=== PATIENT | female | born 1950 | race Caucasian/White ===

== ENCOUNTER → 2018-04-26 | Outpatient (CLI) | payer MEDICARE, OTHER | LOC: GMAL 13:02 | PROVIDERS: ATTEND Family Medicine | DX: D51.8 Other vitamin B12 deficiency anemias (principal); R53.83 Other fatigue; E55.9 Vitamin D deficiency, unspecified ==

== ENCOUNTER → 2018-05-03 | Outpatient (CLI) | payer MEDICARE, OTHER ==
--- NOTE | 2018-05-03 15:11 | US ---
EXAM DESCRIPTION: Renal CLINICAL HISTORY: 67 years Female, ACUTE RENAL INSUFFICIENCY COMPARISON: None. TECHNIQUE: Retroperitoneal sonogram was performed to evaluate the kidneys and bladder. FINDINGS: Right kidney Right renal length is 10.3 cm. Renal cortical thickness and echogenicity are normal. No right renal mass, cyst or shadowing stone. No hydronephrosis. Left kidney Left renal length is 10.9 cm. Renal cortical thickness and echogenicity are normal. No left renal mass, cyst or shadowing stone. No hydronephrosis. Urinary bladder The bladder is not seen, evidently empty of urine at the time of the exam. IMPRESSION: Normal sonographic appearance of the kidneys. Unremarkable appearance of the urinary bladder. Electronically signed by: Dimitris Hager MD 05/03/2018 3:10 PM [facility]
== END ==
LOC: US 12:14
PROVIDERS: ATTEND Family Medicine
DX: N28.89 Other specified disorders of kidney and ureter (principal)

== ENCOUNTER → 2018-06-09 | Outpatient (CLI) | payer MEDICARE, OTHER | LOC: GMAL 14:42 | PROVIDERS: ATTEND Family Medicine | DX: I50.9 Heart failure, unspecified (principal) ==

== ENCOUNTER → 2018-07-02 | Outpatient (CLI) | payer MEDICARE, OTHER ==
--- NOTE | 2018-07-02 13:31 | CT ---
EXAM DESCRIPTION: Chest w/wo Contrast : Computed Tomography. CLINICAL HISTORY: 67 years Female PULMONARY FIBROSIS COMPARISON: Chest x-ray 2 views 06/09/2017. TECHNIQUE: Spiral-axial scans at 5 x 5 mm intervals through the lungs and thorax without IV contrast. 2.5 x 5 mm lung algorithm axial reconstructions. Coronal and sagittal 2.0 Mm reconstructions. No adverse reactions. Total Exam DLP: 1910.28 mGy-cm. This exam was performed according to our departmental dose-optimization program which includes automated exposure control, adjustment of the mA and/or kV according to patient size and/or use of iterative reconstruction technique; to reduce radiation dose to as low as reasonably achievable (ALARA). Nodule measurements under 10 mm are given as mean value of 3 axes diameters. FINDINGS: Lungs and large airways: Bilateral blebs are noted abutting the pleura medial and in the periphery as well as abutting the fissures. Large bulla in the central left lower lobe. Peripheral groundglass density in the left upper lobe. Prominent septal thickening in both upper lobes. Groundglass density peripherally and tree-in-bud markings in the peripheral right middle lobe. Also peripheral fibrotic densities in the upper lobes peripherally, inferior right middle lobe, and bilateral bases of the lower lobes. No abnormal nodules and no masses bilaterally. Pleural spaces: No pneumothorax or effusion bilaterally. Mediastinum and Janny: No soft tissue masses or enlarged lymph nodes. Great vessels and Heart: Coronary artery atherosclerotic calcifications and/or stents. Atherosclerotic calcifications in the arch of the aorta and descending aorta. Soft tissues of neck base, axillae, and chest wall: Unremarkable. Upper abdomen: No fluid or free air in the included peritoneal space. Low-density of the liver. Gallbladder partially visualized. Normal enhancement and size of the included spleen and adrenal glands and pancreas. Atherosclerotic changes in the aorta and branch vessels in the celiac axis. Osseous structures: Spondylosis at several levels of the thoracic spine. Minimal arthrosis in the sternoclavicular joints. IMPRESSION: 1. Mild paraseptal type emphysema, but lung volumes are slightly reduced with peripheral groundglass densities, tree-in-bud markings, and fibrotic changes. This is consistent with clinical history, with additional upper lobe currently emphysematous changes. 2. No soft tissue masses or abnormal lymph nodes. Possible fatty infiltration of the partially visualized liver. Electronically signed by: Jayden Burton MD 07/02/2018 1:29 PM [employer]
== END ==
LOC: CT 08:30
PROVIDERS: ATTEND Family Medicine
DX: J84.112 Idiopathic pulmonary fibrosis (principal)

== ENCOUNTER → 2018-09-02 | Outpatient (CLI) | payer MEDICARE, OTHER ==
--- NOTE | 2018-09-03 14:12 | MRI ---
EXAM DESCRIPTION: Lumbar Spine w/o Contrast : Magnetic Resonance Imaging. CLINICAL HISTORY: SPINAL STENOSIS COMPARISON: None. TECHNIQUE: Multiplanar, multiple standard sequences, non contrast MRI, lumbar spine. FINDINGS: L5-S1: Disc space is imaged on T2 axial sequence 501, image 3. Disc desiccation and minimal disc space loss. Left posterior and midline bulge abutting the thecal sac and the descending left S1 nerve above the lateral recess. Bulge also into the left foramen abutting the exiting left L5 nerve. Large left lateral osteophytes projecting from the endplates also abutting the left L5 nerve in the soft tissues. AP canal diameter 8 mm. Posterior elements unremarkable. L4-L5: Trace anterolisthesis. Disc desiccation with disc space maintained. Posterior midline and right paracentral hyperintense T2-weighted annular fissure abutting the thecal sac and the descending right L5 nerve. Partial effacement of the right subarticular recess. Facet arthrosis and hypertrophy of the facet and flavum ligament bilaterally abutting the posterior thecal sac. AP canal diameter 8 mm. Moderate right foraminal narrowing and mild left foraminal narrowing. L3-4: Desiccation of the disc with disc space maintained. Grade 1 anterolisthesis 3.5 mm. Posterior disc bulge in the midline into the right of midline more than left. Arthrosis of the facet and hypertrophy with the flavum ligaments. Left facet effusion. Narrowing of the transverse canal diameter. Modic type I endplate reaction anterior superior L4 endplate with minimal anterior disc bulge. AP canal 6 mm. Mild to moderate bilateral foraminal narrowing. L2-L3: Disc desiccation with disc space preserved. Posterior broad-based bulge. Facet arthrosis and hypertrophy with the flavum ligaments and narrowed transverse diameter of the canal. AP canal diameter 8 mm. Bilateral mild foraminal narrowing. L1-L2: Disc desiccation with anterior bulging and endplate ridging. Inferior and superior Schmorl's nodes. Posterior broad-based bulge. Mild facet arthrosis and hypertrophy with the flavum ligaments narrowing of the canal transverse diameter. AP diameter 9 mm. Bilateral foramina are patent. T12-L1: Disc desiccation with disc space preserved. Minimal anterior bulging and endplate ridging. Posterior broad-based bulge and small inferior Schmorl's node. AP canal diameter 11 mm. Posterior elements unremarkable. Bilateral foramina are patent. Conus terminates at this level. No significant scoliosis. Paravertebral soft tissues muscle atrophy.. Normal marrow signal in the remaining vertebral bodies and the posterior elements. Vertebral bodies are not compressed at any level. IMPRESSION: 1. L5-S1 disc bulge abutting the thecal sac and the descending left S1 nerve, and also abutting the exiting left L5 nerve. Foraminal stenosis. Large lateral spur on the left with mass effect on the more lateral L5 nerve. Mild central canal stenosis. 2. Annular fissure in the L4-5 disc abutting the thecal sac and the descending right L5 nerve with partial effacement of the right subarticular recess. Multifactorial mild central canal stenosis. 3. Moderate to severe central canal stenosis is multifactorial at L3-4. Grade 1 anterolisthesis. Anterior superior L4 endplate spondylosis. 4. Multifactorial mild central canal stenosis at L2-L3 and L1-L2. 5. Multiple levels of disc desiccation and bulging, spondylosis, arthrosis of the bilateral facet joints with hypertrophy and enlargement of the associated flavum ligaments. Electronically signed by: Jayden Burton MD 09/03/2018 2:09 PM CDT
== END ==
LOC: MRI 09:19
PROVIDERS: ATTEND Family Medicine
DX: M48.07 Spinal stenosis, lumbosacral region (principal); M47.896 Other spondylosis, lumbar region; M43.16 Spondylolisthesis, lumbar region; M51.36 Other intervertebral disc degeneration, lumbar region

== ENCOUNTER → 2018-11-30 | Outpatient (CLI) | payer MEDICARE, OTHER | LOC: LAB.O 11:57 | PROVIDERS: ATTEND Internal Medicine Interventional Cardiology | DX: I25.10 Atherosclerotic heart disease of native coronary artery without angina pectoris (principal) ==

== ENCOUNTER → 2019-01-19 | Outpatient (CLI) | payer MEDICARE, OTHER ==
--- NOTE | 2019-01-19 17:01 | CT ---
EXAM DESCRIPTION: Chest w/o Contrast : Computed Tomography. CLINICAL HISTORY: 68 years Female PULM FIBROSIS EMPHYSEMA COMPARISON: CT scan of the chest without and with IV contrast 07/02/2018. TECHNIQUE: Spiral-axial scans at 5 x 5 mm intervals through the lungs and thorax without IV contrast. 2.5 x 5 mm lung algorithm axial reconstructions. Coronal and sagittal 2.0 Mm reconstructions. Total Exam DLP: 914.76 mGy-cm. This exam was performed according to our departmental dose-optimization program which includes automated exposure control, adjustment of the mA and/or kV according to patient size and/or use of iterative reconstruction technique; to reduce radiation dose to as low as reasonably achievable (ALARA). Nodule measurements under 10 mm are given as mean value of 3 axes diameters. FINDINGS: Lungs and large airways: Peripheral groundglass densities in the upper lobes more left than right. No change from the prior study. Also groundglass density in the peripheral right middle lobe with pleural parenchymal scarring middle lobe and lingula. Stable since the prior study. Peripheral groundglass densities in the bilateral lower lobes and/or posterior basilar dependent atelectasis is stable. Isolated parenchymal bulla stable left lower lobe. No new nodules or masses. No new focal infiltrates. Pleural spaces: Interval development of apical pleural scarring on the left no effusion or pneumothorax. Mediastinum and Janny: Evaluation limited due to lack of IV contrast stable small lymph nodes.. Great vessels and Heart: Evaluation limited due to lack of IV contrast. Atherosclerotic calcifications. Unchanged. Soft tissues of neck base, axillae, and chest wall: Evaluation limited due to lack of IV contrast. Stable. Upper abdomen: No free air or free fluid. Normal size and density of the adrenal glands and spleen. Atherosclerotic calcifications of the aorta and arterial branches. Gallbladder partially visualized. Osseous structures: Endplate changes in the mid and lower thoracic spine with desiccated disc gas formation in 2 disc spaces. No lytic or blastic lesions. IMPRESSION: 1. Scattered emphysematous blebs and bulla, peripheral scattered groundglass densities more left than right, bilateral pleural-parenchymal scarring, and bilateral basilar dependent atelectasis. No progression since the prior study with no new nodules or masses. No focal infiltrates. No follow-up chest CT thoracic imaging is recommended. Electronically signed by: Jayden Burton MD 01/19/2019 5:00 PM CDT
== END ==
LOC: CT 11:00
PROVIDERS: ATTEND Internal Medicine
DX: J84.10 Pulmonary fibrosis, unspecified (principal); J43.9 Emphysema, unspecified; J98.11 Atelectasis

== ENCOUNTER → 2019-11-11 | Outpatient (CLI) | payer MEDICARE, OTHER | LOC: GMAL 10:37 | PROVIDERS: ATTEND Family Medicine | DX: D51.8 Other vitamin B12 deficiency anemias (principal); R53.83 Other fatigue; E55.9 Vitamin D deficiency, unspecified; I10 Essential (primary) hypertension; E78.2 Mixed hyperlipidemia ==

== ENCOUNTER → 2020-03-05 | Outpatient (CLI) | payer MEDICARE, OTHER ==
--- NOTE | 2020-03-06 12:41 | MRI ---
EXAM DESCRIPTION: Lumbar Spine w/o Contrast : Magnetic Resonance Imaging. CLINICAL HISTORY: SPINAL STENOSIS LUMBOSACRAL REGION COMPARISON: MRI scan of the lumbar spine without contrast August 2018. TECHNIQUE: Multiplanar, multiple standard sequences, non contrast MRI, lumbar spine. FINDINGS: L5-S1: The disc is well visualized on axial T2 series 501, image 3. L5 vertebra is transitional and partially sacralized, particularly the left transverse process. Disc desiccation with minimal disc space loss. Posterior disc bulge along with disc osteophyte encroachment on the left foramen, abutting the exiting left L5 nerve. Hypertrophic spur from the inferior left L5 endplate also abutting the nerve. Hypertrophic changes in the posterior flavum ligaments and facet joints (canal elements). Foramina and facet joints and canal are sacralized. AP canal diameter 9 mm. Mild narrowing of the right foramen. L4-L5: Disc desiccation with disc space maintained. Hyperintense T2 annular fissure in the right paracentral posterior disc margin is stable. Grade 1 anterolisthesis 2 mm unchanged. Moderate hypertrophy of the canal elements with compression of the lateral thecal sac. AP canal diameter 8 mm, slightly more narrow since the prior study. Moderate narrowing of the right foramen and mild to moderate narrowing of the left foramen. L3-L4: Disc desiccation with disc space maintained. 3 mm grade 1 anterolisthesis. Minimal bulging. Marked hypertrophic changes in the canal elements with compression of the bilateral thecal sac. AP canal diameter 6 mm, stable from the prior study. Bilateral subarticular recess narrowing or mild stenosis; no interval change. Bilateral moderate to severe foraminal narrowing slightly worsened since the prior study. L2-L3: Disc desiccation and posterior broad-based bulge. Hypertrophic changes in the canal elements impressing on the lateral thecal sac. AP canal diameter 6.5 mm. Minimal progression since the prior study. Mild bilateral foraminal narrowing. L1-L2: Disc desiccation with inactive Schmorl's nodes in the endplates. Anterior bulging and endplate ridging. Posterior broad-based bulge. Mild hypertrophic changes in the canal elements. AP canal diameter 8.4 mm. Bilateral foramina are patent. T12-L1: Disc desiccation and minimal disc space loss. Mild endplate reactive changes. Anterior disc bulging and endplate ridging. Posterior broad-based disc bulge. Also minimal bulge in the midline below the disc space. Hypertrophic changes in the canal elements. AP canal diameter 10 mm. No scoliosis Paravertebral soft tissues muscle atrophy. Distal cord normal signal and caliber. Normal marrow signal in the remaining vertebral bodies and the posterior elements. Vertebral bodies are not compressed at any level. IMPRESSION: 1. L5 vertebra is transitional and partially sacralized. Multilevel disc desiccation, spondylolisthesis, hypertrophic changes in the facet joints and flavum ligaments, and endplate spondylosis. 2. L5-S1 disc bulge in the midline and into the left foramen encroaching on the left L5 nerve. Large left lateral left L5 osteophyte also encroaching on the nerve. Hypertrophic canal elements. Left foraminal stenosis and canal stenosis. Stable since the prior study. 3. Stable right posterior L4-L5 annular fissure. Multifactorial Mild to moderate canal stenosis unchanged. 4. Severe multifactorial central canal stenosis at L3-L4. Stable grade 1 anterolisthesis. Bilateral moderate to severe foraminal narrowing has worsened since the prior study. 5. Please refer to FINDINGS for discussion of results at other disc space levels. Electronically signed by: Jayden Burton MD 03/06/2020 12:39 PM CDT
== END ==
LOC: MRI 10:00
PROVIDERS: ATTEND Family Medicine
DX: M48.07 Spinal stenosis, lumbosacral region (principal); M48.061 Spinal stenosis, lumbar region without neurogenic claudication; M51.36 Other intervertebral disc degeneration, lumbar region; M47.896 Other spondylosis, lumbar region; M43.16 Spondylolisthesis, lumbar region; M43.8X6 Other specified deforming dorsopathies, lumbar region; M51.87 Other intervertebral disc disorders, lumbosacral region; M25.78 Osteophyte, vertebrae; M51.35 Other intervertebral disc degeneration, thoracolumbar region; M24.28 Disorder of ligament, vertebrae

== ENCOUNTER → 2020-03-07 | Outpatient (CLI) | payer MEDICARE, OTHER | LOC: ECHO 11:00 | PROVIDERS: ATTEND Family Medicine Sports Medicine | DX: I10 Essential (primary) hypertension (principal); I35.1 Nonrheumatic aortic (valve) insufficiency; I36.1 Nonrheumatic tricuspid (valve) insufficiency; I34.0 Nonrheumatic mitral (valve) insufficiency; I51.7 Cardiomegaly ==